=== PATIENT | female | born 1965 | race Caucasian/White ===

== ENCOUNTER → 2019-12-09 10:47 | Outpatient (CLI) | payer OTHER, SELFPAY ==
[2018-10-24 08:07] VITALS: BMI 23.0
--- NOTE | 2019-12-09 | BRBX_PTH ---
PATIENT: JAYE COLLINS LOC: [facility] U#:[id number] AGE/SX: 60/F ROOM: RE12/09/[address]: Dr. Eldon Mata MD : 1965 BED: DIS: SPEC #: [id number] RECD: 12/09/19 14:07 STATUS: TESSA CLAUDIA #: [id number] NINI: 12/09/19 00:[address]: Eldon Mata DEPT: SURGICAL PATHOLOGY RECD BY: Luisito Gonzáles ENTERED: 12/09/19 14:07 SP TYPE: BREAST BX OTHR DR: Dr. 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 Negative for atypia or malignancy. SHARRI:franny 12/10/19 COMMENT Please make reference to previous specimen ([id number]) right breast, lumpectomy with diagnosis of invasive ductal carcinoma and ductal carcinoma in situ. Case has been reviewed in consultation with Dr. Lombardo who concurs with the above diagnosis. IDC:AM MICROSCOPIC DESCRIPTION Slides are reviewed. GROSS DESCRIPTION Received is one container labeled with the patient's name and not further designated. The specimen consists of multiple elongated fragments of ocasio-yellow fibroadipose tissue that in aggregate measure 2 x 1.5 x 0.2 cm. The entire specimen is submitted in one cassette. / SHARRI:franny 12/09/19 TC:1 CPT: 45032
--- NOTE | 2019-12-09 11:19 | HP.PCM_ITS ---
Problem List (1) Abnormal mammogram of left breast Status: Acute History and Physical Date of Admission: 12/09/19 ntake Visit Reasons: Birads 4 L Breast Chief Complaint: yearly breast Allergies No Known Allergies Allergy (Verified 12/08/19 15:14) Medications acetaminophen 325 mg tablet 500 mg PO Q6H PRN 05/21/17 [History Confirmed 12/08/19] calcium carbonate 500 mg calcium (1,250 mg) chewable tablet 500 mg PO BID tab 05/21/17 [History Confirmed 12/08/19] multivitamin 1 tab PO QDAY 05/21/17 [History Confirmed 12/08/19] naproxen sodium 220 mg capsule 220 mg PO DAILY PRN cap 04/01/18 [History Confirmed 12/08/19] PFSH Medical History History of right breast cancer (Acute) Arthritis (Acute) Back pain (Acute) Diarrhea (Acute) History of back problems (Acute) History of breast cancer (Acute) s/p removal of port (Acute) Surgical History S/P breast biopsy, right (Acute) S/P lumpectomy, right breast (Acute) Family History Father Cancer Brother Cancer Mother Hypertension High cholesterol Osteoporosis Social History (Updated 12/08/19 @ 16:[address] Eldon Mata MD) adopted: No Smoking Status: Never smoker alcohol intake: never substance use type: does not use HPI HPI HPI: JAYE COLLINS, is a 54 F who presents to the office today for surgical consultation today regarding an abnormal left mammogram. The patient is referred by Dr. Domingo Mata, III and written copy my surgical consult recommendations will return to him. Approximately 13 years ago she was treated for outer mid right breast cancer with breast conservation surgery. I do not have the pathology of that immediately available. She was on tamoxifen for approximately 5 years. Her medical oncologist was Dr. Fco Sparrow. To date she has not had any symptomatic change. She has been enjoying a good feeling of health and wellness. She simply presented for her routine imaging. On December 01, 2019 at the [facility] she had bilateral screening mammography. Evidence of the previous right lumpectomy identified. Postoperative changes. There was now felt to be a new mass in the upper inner aspect of the left breast. Further imaging was recommended. Subsequently on December 03, 2019 at the [facility] she had a left unilateral mammogram and left breast ultrasound. The interpretation was 6 mm oval density left breast 10 o'clock position +5 cm. BI-RADS Category 4. Biopsy recommended. I have personally reviewed the images. The area shows a cleanly and neatly on mammograms. It is more difficult to visualize on ultrasound. Family history is negative for breast cancer. She does not have any other current medical comorbidities. She is not on any anticoagulation. My notes from 1 year ago reflect the following. HPI: JAYE COLLINS, is a 53 F who presents to the office today for surgical follow-up status post right breast conservation surgery approximately 11 years ago. She has not had any evidence of recurrence. At the [facility] on October 08, 2017 she had bilateral breast mammography. Distortion is noted on the right consistent with her lumpectomy. Benign calcifications on the right. No clinical change. At the [facility] on October 10, 2018 she had bilateral mammography. This demonstrated evidence of a right breast lumpectomy with a stable biopsy clip in both breasts. There was felt to be some architectural distortion of the left breast central to the nipple middle depth. It was felt to be a incomplete study and additional imaging was requested. On October 16, 2018 diagnostic left breast mammography was achieved. And 3D imaging was achieved. The final interpretation was that the previous area of suspicion was no longer mammographically evident. Benign findings. BI-RADS Category 2. HPI HPI HPI: JAYE COLLINS, is a 54 F who presents to the office today for Exam Const General: cooperative, healthy appearing, comfortable, no acute distress Nutritional Appearance: average body habitus Orientation: alert, awake [facility] Head: normal to inspection Eyes General: appearance normal, both eyes and all related structures Chest Other: Right breast: Deformity lateral right breast periareolar with induration and retraction consistent with previous lumpectomy. Well-healed right axillary incision. Diffuse mild fibrous change of the right breast post radiation. Left breast: No focal mass. No nipple discharge. No axillary or clavicular adenopathy Resp Effort & Inspection: normal respiratory effort Auscultation: clear to auscultation bilaterally Cardio Rate: regular rate Rhythm: regular rhythm GI Palpation: soft, no hepatosplenomegaly Auscultation: normal bowel sounds Neuro General: alert, awake Extrem General: no calf tenderness Psych Affect: normal affect Assessment & Plan Problems 1. Abnormal mammogram of left breast R92.8 2. History of right breast cancer Z85.3 Plan Remote history of right breast cancer approximately 13 years ago. New onset of abnormal mammogram and left breast ultrasound with density upper inner left breast 10 o'clock position +5 cm. I did briefly inspect with ultrasound in the office as I had inspected her preoperative ultrasound and mammograms provided from the [facility]. Admittedly the ultrasound findings significantly more vague than the mammographic findings. I was not comfortable on my ultrasound inspection to proceed with a biopsy with that is the directive. I recommended that we expedite the patient's care and schedule her for a stereotactic needle core left breast biopsy. She has had an opportunity to ask and have questions answered. We will proceed as noted. Cc: Dr. Domingo Mata, III Eldon Mata M.D., F.A.C.S. Coding Level of Care Code Off vis,est,level 3 Diagnoses Abnormal mammogram of left breast R92.8 History of right breast cancer Z85.3 I have re-examined the patient. There are no clinical changes since date of exam. Procedure Criteria Procedure Type: Elective COVID Risk Discussion: The surgeon/proceduralist and patient have discussed in detail the risk of exposure to and/or potential harm posed by the COVID-19 virus with having a surgery/procedure at this time versus the risk of delaying the surgery/procedure. It is not possible to know either the risk of delaying the surgery or procedure or chance of getting an infection with perfect accuracy, but a joint decision was made between the patient and the surgeon/proceduralist to proceed at this time with the scheduled surgery/procedure as indicated on the consent form.
--- NOTE | 2019-12-09 11:34 | PCM.OPRPT ---
Problem List (1) Abnormal mammogram of left breast Status: Acute Report of Operation Date of Procedure: 12/09/19 Pre-Operative Diagnosis: Density upper inner left breast Post-Operative Diagnosis: Same Surgery/Procedure Performed:: Stereotactic needle core biopsy upper inner left breast Description of Surgical Findings:: Timeout and informed consent was obtained. 54-year-old female was taken to the stereotactic room. She was placed prone on the table. The left breast was placed in a cc view. The density in question was rapid identified. Stereotactic images were obtained. Digital information staying on a single target site. The breast was prepped with Betadine. 1% lidocaine was used as a local anesthetic. A total of 8 cc was used. Small stab incision was created. A 10-gauge resolved needle was advanced to prefire depth. Prefire films were obtained suggesting that the lesion had all but dissolved. The device was fired. 6 cores were obtained. A marking clip was left in position. Pressure was held for hemostasis. Steri-Strip Telfa OpSite dressing applied. The specimens were immediately transferred to formalin. Final cc view demonstrated the marking clip to be in good position with seemingly absence of the previous density suggesting a benign cystic item. She was given activity wound care instructions. She will be notified of pathology results as they become available. Blood loss minimal. Eldon Mata M.D., F.A.C.S. Type of Anesthesia:: Local
== END ==
PROVIDERS: PCP Family Medicine; Referring Provider Surgery; Visit Provider Surgery
DX: D18.09 Hemangioma of other sites (principal); R92.8 Other abnormal and inconclusive findings on diagnostic imaging of breast; Z85.3 Personal history of malignant neoplasm of breast; Z79.810 Long term (current) use of selective estrogen receptor modulators (SERMs)
CPT/HCPCS: 19081; 88305; J7050

== ENCOUNTER 2024-05-26 08:02 | Day surgery (SDC) | payer BC, SELFPAY ==
[2024-05-26] VITALS (7 sets, daily range): BP systolic 91–123; BP diastolic 53–67; PULSE 59–68; RESP 16; TEMP 36.4–36.6; O2SAT 98–100; BMI 24.5
--- NOTE | 2024-05-26 08:08 | H&P.OPEN ---
[facility] - General General Date of Service: 05/26/24 [facility] Narrative JAYE COLLINS, is a 59 F who presents for screening colonoscopy. Patient was colonoscopy was by Dr. Mata in 2013 negative per patient. Patient denies any family history of colon cancer. Patient has bowel movements daily denies any blood. Patient denies any chronic abdominal pain/nausea/vomiting/reflux. PFS Medical History (Updated 05/22/24 @ 10:15 by Sarah Mckinney) Wears glasses Cancer Non-smoker History of echocardiogram Perirectal abscess Abnormal mammogram of left breast Diarrhea History of right breast cancer Arthritis History of back problems s/p removal of port Back pain History of breast cancer Home Medications ?Medication ?Instructions ?Recorded ?Last Taken ?Type acetaminophen 325 mg tablet 500 mg PO Q6H PRN pain 05/21/17 Unknown History (Tylenol) calcium carbonate (Calcium 500) 500 mg PO BID 05/21/17 Unknown History multivitamin 1 tab PO QDAY 05/21/17 Unknown History naproxen sodium 220 mg capsule 220 mg PO DAILY PRN pain 04/01/18 Unknown History (Aleve) alendronate 70 mg tablet (Fosamax) 70 mg PO QWEEK 03/25/24 Unknown History Allergy/AdvReac Type Severity Reaction Status Date / Time No Known Allergies Allergy Verified 05/26/24 08:18 Family History Father Cancer Brother Cancer Mother Hypertension High cholesterol Osteoporosis Surgical History Hx of colonoscopy S/P breast biopsy, right S/P lumpectomy, right breast Social History (Updated 03/25/24 @ 12:43 by Usha Kenney) adopted: No household members: spouse current occupational status: employed current occupation: [employer] Smoking Status: Never smoker alcohol intake: never substance use type: does not use Past Medical/Surgical History Planned Operation Planned Operative Procedure(s): COLONOSCOPY Previous Hospitalizations/Surgeries HX Hospitalizations: No Any Problems With Anesthesia: No You/Your Family Experience Fever (Hyperthermia) With Anes: No Cholinesterase deficiency: No Cardiovascular Hx of Irregular Heartbeat and/or Afib: No Hx Heart Attack: No Hx Congestive Heart Failure: No Hx Hypertension: No Hx Pacemaker: No Respiratory Hx Chronic Obstructive Pulmonary Disease (COPD): No Hx Asthma: No Hx Emphysema: No Hx Sleep Apnea: No Hx Respiratory Tract Infection/Cold (presently): No Do You Snore Loudly (louder than talking or can be heard): No Do You Often Feel Tired/ Fatigued/ Sleepy Dring Daytime?: No Has Anyone Observed You Stop Breathing During Sleep?: No Result (for STOP score): Negative Smoking Status: Never smoker Gastrointestinal Hx Ulcer: No Neurological Hx Seizures: No Hx Head/Neck Injury: No Hx Headaches: No Hx Back Injury/Pain: No Does patient have nerve stimulator: No Reproduction : No Allergies No Known Allergies Allergy (Verified 05/26/24 08:18) Discharge Is Pt Admitted From a Senior Care, or a Care Home: No Who Could Help: After D/C, Where Do you Plan to Go: Return Home Physical Exam Const alert, oriented x3 and no apparent distress HEENT normocephalic and head/scalp atraumatic Resp normal respiratory effort Cardio regular rate GI soft to palpation and non-tender; Negative for non-distended Palpation: Negative for guarding Extremity no clubbing, cyanosis or edema Skin no rashes or lesions noted Neuro CN's II-XII intact bilaterally Psych mental status grossly normal Assessment & Plan Assessment/Plan (1) Encounter for screening for malignant neoplasm of colon: Surgery Risks - Colonoscopy I discussed with the patient the risks of the procedure: Yes Risks Include but are not Limited To: Risks include but are not limited to: Bleeding, perforation requiring further surgery, inability to complete colonoscopy requiring barium enema.
--- NOTE | 2024-05-26 08:36 | PCM.PRE.AN2 ---
ASA Classification* ASA Classification ASA Classification: 2 Assessment & Plan Anesthesia* Anesthesia Assessment Anesthesia Assessment: Discussed sedation and/or anesthesia options, risks, benefits, and alternatives with patient/parents/legal guardian/POA. Questions invited. The patient/parents/legal guardian/POA seems to understand and agrees to proceed with anesthesia plan. Reviewed the physical assessment, medical history, allergy history and patient home medications list prior to surgery/procedure/anesthetic and documented any changes. Performed airway and anesthesia risk assessments. Anesthesia Type Anesthesia Type: MAC Anesthesia Focused Assessment* Temperature: 97.7 F Pulse Rate: 66 Blood Pressure: 123/67 Respiratory Rate: 16 Pulse Ox: 100 Airway Assessment Mouth opens: >3 cm Mallampati Score: II Focused Labs Anesthesia Preop lab: CBC CHEMISTRY COAG Pre-Assessment Diagnosis/Proposed Procedure Planned Operative Procedure(s): COLONOSCOPY Anesthesia History Anesthesia History - geriatric case manager: Anesthesia History - geriatric case manager Hx Hospitalization No 05/26/24 08:09 Any Problems With Anesthesia No 05/26/24 08:09 Cholinesterase deficiency No 05/26/24 08:09 You/Your Family Experience No 05/26/24 08:09 fever (hyperthermia) with Relationship Recent Exposure to Contagious No 05/26/24 08:25 Disease Does patient have nerve No 05/26/24 08:09 stimulator Patient instructed to have device shut off --Does patient have Pacemaker No 05/26/24 08:25 or ICD? When Was Last Pacemaker Check QUESTION #4 FULL TEXT: You/Your Family Experience fever (hyperthermia) with Anesthesia Last Oral Intake Last Oral intake: Last Oral Intake NPO since Meds taken in AM with sips of water? Meds patient instructed to take am of surgery PONV PONV - geriatric case manager: PONV - geriatric case manager Female Yes 05/22/24 09:52 HX of Motion Sickness No 05/22/24 09:52 HX of N/V After Surgery No 05/22/24 09:52 Non-Smoker No 05/22/24 09:52 Duration of Surgery greater No 05/22/24 09:52 than 60 minutes Number of Risk Factors 1 05/22/24 09:52 PONV Score Low Risk 05/22/24 09:52 Height & Weight Height & Weight: Anesthesia: Height & Weight Height 5 ft 3 in 05/26/24 08:25 Weight: 63 kg 05/26/24 08:25 Body Mass Index (BMI) 24.5 05/26/24 08:25 Respiratory Assessment Respiratory Assessment - geriatric case manager: Respiratory Tract Infection Hx - geriatric case manager Hx Respiratory Tract Infection No 05/26/24 08:09 STOP Sleep Apnea STOP Sleep Apnea - geriatric case manager: STOP Sleep Apnea - geriatric case manager Hx Hypertension No 05/26/24 08:09 Hx Sleep Apnea No 05/26/24 08:09 CPAP BIPAP Do you snore loudly (louder No 05/26/24 08:09 than talking or can be heard Do you often feel tired/ No 05/26/24 08:09 fatigued/ sleepy during daytime? Has anyone observed you stop No 05/26/24 08:09 breathing during sleep? STOP Results Negative 05/26/24 08:32 QUESTION #5 FULL TEXT : Do you snore loudly (louder than talking or can be heard through closed doors)? 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 Specify any problems Hx of Preganancy in last 3 No 05/22/24 09:52 Months Nurse Filling Out Transfusion VLEHMAN 05/22/24 09:52 & Questions: Date: 05/22/24 05/22/24 09:52 Time: 09:58 05/22/24 09:52 Patient unable to answer at this time (ie. confused, unrespo /Reproduction History /Reproductive History - geriatric case manager: /Reproductive Hx- geriatric case manager Hx Now No 05/26/24 08:09 Gestational Age (in weeks): EDC: Hx Hx Para Hx Section SAB PFSH Medical History Wears glasses Cancer Non-smoker History of echocardiogram Perirectal abscess Abnormal mammogram of left breast Diarrhea History of right breast cancer Arthritis History of back problems s/p removal of port Back pain History of breast cancer Home Medications ?Medication ?Instructions ?Recorded ?Last Taken ?Type acetaminophen 325 mg tablet 500 mg PO Q6H PRN pain 05/21/17 Unknown History (Tylenol) calcium carbonate (Calcium 500) 500 mg PO BID 05/21/17 Unknown History multivitamin 1 tab PO QDAY 05/21/17 Unknown History naproxen sodium 220 mg capsule 220 mg PO DAILY PRN pain 04/01/18 Unknown History (Aleve) alendronate 70 mg tablet (Fosamax) 70 mg PO QWEEK 03/25/24 Unknown History Allergy/AdvReac Type Severity Reaction Status Date / Time No Known Allergies Allergy Verified 05/26/24 08:18 Family History Father Cancer Brother Cancer Mother Hypertension High cholesterol Osteoporosis Surgical History Hx of colonoscopy S/P breast biopsy, right S/P lumpectomy, right breast Social History adopted: No household members: spouse current occupational status: employed current occupation: [employer] Smoking Status: Never smoker alcohol intake: never substance use type: does not use Review of Systems (Anesthesia) ROS Narrative System reviewed and no additional complaints, except as documented.
--- NOTE | 2024-05-26 10:17 | OP.COLON_ITS ---
Patient Name: Kierra Gallardo Procedure Date: 05/26/2024 9:48 AM Date of : 1965 Age: 59 Procedure: Colonoscopy Indications: Screening for colorectal malignant neoplasm Providers: Mounika Newman MD Referring MD: Jarrod Astorga Medicines: Monitored Anesthesia Care Patient Profile: This is a 59 year old female. Last Colonoscopy: 2013. Complications: No immediate complications. Procedure: Pre-Anesthesia Assessment: - Prior to the procedure, a History and Physical was performed, and patient medications and allergies were reviewed. The patient's tolerance of previous anesthesia was also reviewed. The risks and benefits of the procedure and the sedation options and risks were discussed with the patient. All questions were answered, and informed consent was obtained. Prior Anticoagulants: The patient has taken no anticoagulant or antiplatelet agents. ASA Grade Assessment: Per anesthesia. After reviewing the risks and benefits, the patient was deemed in satisfactory condition to undergo the procedure. After I obtained informed consent, the scope was passed under direct vision. Throughout the procedure, the patient's blood pressure, pulse, and oxygen saturations were monitored continuously. The Colonoscope was introduced through the anus and advanced to the cecum, identified by the appendiceal orifice, ileocecal valve and palpation. The colonoscopy was performed without difficulty. The patient tolerated the procedure well. The quality of the bowel preparation was good. Scope In: 9:57:53 AM Scope Withdrawal Time 0 hours 8 minutes 11 seconds Scope Out: 10:11:58 AM Total Procedure Duration Time 0 hours 14 minutes 5 seconds Findings: The perianal and digital rectal examinations were normal. A few small-mouthed diverticula were found in the sigmoid colon. The exam was otherwise without abnormality on direct and retroflexion views. Impression: - Diverticulosis in the sigmoid colon. - The examination was otherwise normal on direct and retroflexion views. - No specimens collected. Recommendation: - Discharge patient to home. - High fiber diet. - Continue present medications. - Repeat colonoscopy in 10 years for screening purposes. Procedure Code(s): --- Professional --- G0121, PT, Colorectal cancer screening; colonoscopy on individual not meeting criteria for high risk Diagnosis Code(s): --- Professional --- Z12.11, Encounter for screening for malignant neoplasm of colon K57.30, Diverticulosis of large intestine without perforation or abscess without bleeding CPT copyright 2021 [employer]. All rights reserved. The codes documented in this report are preliminary and upon frame carver spindle review may be revised to meet current compliance requirements. MD Mounika Zelaya MD 05/26/2024 10:17:25 AM This report has been signed electronically. Number of Addenda: 0 Note Initiated On: 05/26/2024 9:48 AM
--- NOTE | 2024-05-26 10:18 | OP.CCLET_ITS ---
05/26/2024 Jarrod Astorga [address] [place] [address] Re : Colonoscopy procedure for [facility] Dear Dr. Astorga This procedure was performed on Sunday, May 26, 2024. My impressions and recommendations are as follows: Impressions : - Diverticulosis in the sigmoid colon. - The examination was otherwise normal on direct and retroflexion views. - No specimens collected. Recommendations : - Discharge patient to home. - High fiber diet. - Continue present medications. - Repeat colonoscopy in 10 years for screening purposes. My findings are described in the full procedure note, which is enclosed. If I can be of further assistance, please feel free to contact me at Doctor phone number(s): , Work: . Sincerely, MD Mounika Zelaya MD 05/26/2024 10:17:25 AM This report has been signed electronically.
--- NOTE | 2024-05-26 10:20 | PCM.POST.ANE ---
Anesthesia: Postop Eval I Current Vital Signs Temperature: 97.5 F Pulse Rate: 68 Blood Pressure: 91/53 Respiratory Rate: 16 Pulse Ox: 99 Oxygen Delivery Method: Room Air Assessment Airway patent: Yes Spontaneous unlabored respirations: Yes Mental status: Asleep nausea: No Vomiting: No Anesthesia Complication: No Fluid Hydration Crystalloid volume administer (ml): 40 Total IV fluid infused: 40 Progress Note Anesthesia document: Postop Eval 1 completed: Yes
--- NOTE | 2024-05-26 13:24 | PCM.POSTANE2 ---
Anesthesia Postop Eval I Sum Postop Eval Completion status Anesthesia document: Postop Eval 1 completed: Yes Anesthesia Postop Eval I Summary Anesthesia Postop Eval I Summary: Anesthesia Postop Eval I: Assessment Summary Airway patent Yes 05/26/24 10:21 [email or web address] Spontaneous unlabored Yes 05/26/24 10:21 [email or web address] respirations Mental status Asleep 05/26/24 10:21 [email or web address] nausea No 05/26/24 10:21 [email or web address] Vomiting No 05/26/24 10:21 [email or web address] Anesthesia Postop Eval I: Fluid Summary Crystalloid volume administer 40 05/26/24 10:21 [email or web address] (ml) Colloids volume administered ( ml) Blood Product volume administered (ml) Total IV fluid infused 40 05/26/24 10:21 [email or web address] Anesthesia Postop Eval I: Summary Notes Anesthesia Complication No 05/26/24 10:21 [email or web address] Anesthesia Complication Comment: Post-operative progress note Anesthesia: Postop Eval II Evaluation Mental status: Awake Pain Level: 0 nausea: No Vomiting: No
== END 2024-05-26 11:00 | disposition home or self-care (01) ==
LOC: EN 08:04 → AC 08:05
PROVIDERS: PCP Family Medicine; Referring Provider Family Medicine; Visit Provider Surgery
PROC: 0DJD8ZZ Inspection of Lower Intestinal Tract, Via Natural or Artificial Opening Endoscopic (ICD-10-PCS; CPT 45378; principal; 2024-05-26 09:25)
DX: Z12.11 Encounter for screening for malignant neoplasm of colon (principal); K57.30 Diverticulosis of large intestine without perforation or abscess without bleeding
CPT/HCPCS: 45378; J2405